=== PATIENT | male | born 1975 | race Caucasian/White ===

== ENCOUNTER 2022-01-17 03:49 | Emergency (ER) | payer MEDICAID ==
[~2022-01-17] VITALS: Ht 175.3 cm; Wt 90.9 kg
[2022-01-17 04:28] VITALS: BP 156/93
[2022-01-17] MEDS ORDERED: ACETAMINOPHEN 500 MG TABLET PO ONE (04:30)
[2022-01-17] MEDS ORDERED: MAG HYDROX/AL HYDROX/SIMETH 30 ML SUSP UDCUP PO ONE (04:30)
[2022-01-17] MEDS ORDERED: FAMOTIDINE 20 MG TABLET PO ONE (04:30)
[2022-01-17 05:10] LABS: AMPHET/METH SCREEN,URINE POSITIVE (NEGATIVE); BARBITURATE SCREEN, URINE NEGATIVE (NEGATIVE); BENZODIAZEPINES SCREEN,URINE NEGATIVE (NEGATIVE); CANNABINOID SCREEN,URINE NEGATIVE (NEGATIVE); COCAINE SCREEN,URINE NEGATIVE (NEGATIVE); METHADONE SCREEN, URINE NEGATIVE (NEGATIVE); OPIATE SCREEN,URINE NEGATIVE (NEGATIVE)
[2022-01-17 05:12] LABS: PHENCYCLIDINE SCREEN,URINE NEGATIVE (NEGATIVE)
== END 2022-01-17 05:42 | disposition left against medical advice (07) ==
LOC: EMS 03:50
DX: R07.89 Other chest pain (principal); F41.9 Anxiety disorder, unspecified; I10 Essential (primary) hypertension; F12.90 Cannabis use, unspecified, uncomplicated
CPT/HCPCS: 71045; 93005; 99285; 36415-L1; 36415-TC

== ENCOUNTER 2022-01-17 07:58 | Emergency (ER) | payer MEDICAID ==
[~2022-01-17] VITALS: Ht 175.3 cm; Wt 90.9 kg
[2022-01-17 12:22] VITALS: BP 152/87
== END 2022-01-17 13:20 | disposition home or self-care (01) ==
LOC: EMS 08:16
DX: R07.9 Chest pain, unspecified (principal); F15.10 Other stimulant abuse, uncomplicated; I10 Essential (primary) hypertension; F41.9 Anxiety disorder, unspecified; F12.90 Cannabis use, unspecified, uncomplicated; Z88.0 Allergy status to penicillin
CPT/HCPCS: 93005; 99283